=== PATIENT | female | born 1970 | race African-American/Black ===

== ENCOUNTER 2020-12-06 12:46 | Emergency (ER) | payer BC, OTHER ==
[~2020-12-06] VITALS: Ht 175.3 cm; Wt 121.6 kg
[2020-12-06 13:26] VITALS: BP 102/80
== END 2020-12-06 15:43 | disposition left against medical advice (07) ==
LOC: ER 12:46
DX: N93.9 Abnormal uterine and vaginal bleeding, unspecified (principal); Z53.21 Procedure and treatment not carried out due to patient leaving prior to being seen by health care provider